=== PATIENT | female | born 1990 | race Caucasian/White ===

== ENCOUNTER 2019-11-27 15:25 | Observation (INO) | payer MEDICAID ==
[~2019-11-27] VITALS: Ht 165.1 cm; Wt 84.8 kg
[~2019-11-27 15:25] MED LIST: VICODIN
[2019-11-27] MEDS ORDERED: LACTATED RINGERS 1,000 ML IV SCH (17:00)
[2019-11-27 17:34] LABS: BASOPHILS % 0.4 % (0.0-2.0); CLARITY URINE CLEAR (CLEAR); COLOR URINE YELLOW (YELLOW); HEMATOCRIT. 26.3 % (36.0-48.0); HEMOGLOBIN. 8.7 g/dL (12.0-16.0); KETONES URINE NEGATIVE (NEGATIVE); LEUKOCYTE ESTERASE URINE NEGATIVE (NEGATIVE); LYMPHOCYTES % 15.7 % (20.0-50.0); MEAN CORPUSCULAR HEMOGLOBIN 28.7 pg (28.0-32.0); MEAN CORPUSCULAR VOLUME 86.8 fL (81.0-99.0); MEAN PLATELET VOLUME 10.1 fl (7.4-10.4); MONOCYTES % 8.5 % (2.0-8.0); NEUTROPHILS % 74.4 % (40.0-76.0); NITRITE URINE NEGATIVE (NEGATIVE); OCCULT BLOOD URINE 1+ (NEGATIVE); PH URINE 6.5 (4.5-8.0); PLATELET 184 x1000/uL (130-400); PROTEIN URINE TRACE (NEGATIVE); RED BLOOD CELL COUNT 3.03 mill/uL (4.2-5.4); RED CELL DISTRIBUTION WIDTH 14.1 % (11.6-14.6); SPECIFIC GRAVITY URINE 1.022 (1.005-1.030)
[2019-11-27] MEDS ORDERED: PREN1CAP35 PO (18:47)
== END 2019-11-27 18:55 | disposition home or self-care (01) ==
LOC: ER 15:25 → 8 EST LDRP 16:06
PROVIDERS: ADMIT Obstetrics & Gynecology; ATTEND Obstetrics & Gynecology
DX: O46.92 Antepartum hemorrhage, unspecified, second trimester (principal); Z3A.22 22 weeks gestation of pregnancy; O26.892 Other specified pregnancy related conditions, second trimester; R42 Dizziness and giddiness
CPT/HCPCS: 36415; 76805; 81003; 85025; 99281; G0378; 96360